=== PATIENT | female | born 1965 | race Caucasian/White ===

== ENCOUNTER 2019-04-24 13:11 | Emergency (ER) | payer MEDICAID ==
[~2019-04-24] VITALS: Ht 165.1 cm; Wt 71.0 kg
[2019-04-24 15:30] VITALS: BP 146/72
== END 2019-04-24 15:42 | disposition home or self-care (01) ==
LOC: ER 13:16
DX: L30.9 Dermatitis, unspecified (principal)
CPT/HCPCS: 99283